=== PATIENT | male | born 1955 | race Caucasian/White ===

== ENCOUNTER 2016-10-31 00:12 | Emergency (ER) | payer OTHER ==
--- NOTE | ~2016-10-31 | CT4 ---
[facility] A Service [facility] RADIOLOGY TEXT RESULTS PATIENT: CARLOS CHANG LOCATION: SED : 53 UNIT #: [id number] AGE: [address]: Garcia Costa MD SEX: M ORDER DR: [id number] [place] [id number] E MR#: [id number] Acc #: [id number] NAME: CARLOS CHANG. : 1955 SEX: M STUDY DATE/TIME: 10/31/2016 0:51 UNIT: SED ROOM: STUDY DESCRIPTION: CT Abd and Pelv Wo Cont Attending Physician: Garcia Costa M.D. Ordering Physician: Garcia Costa M.D. Primary Care Physician: Lázaro Blount M.D. MEDICAL IMAGING REPORT This report is preliminary unless electronic signature is present. EXAM CT abdomen and pelvis without contrast INDICATION Right flank pain with nausea since 5:00 yesterday. Patient had stent removed from right kidney on 09/30/2016. COMPARISON 09/29/2016. TECHNIQUE Axial 3 mm images were obtained through the abdomen and pelvis without IV or oral contrast. This CT examination was performed with one or more of the following radiation dose reduction techniques: automatic exposure control, adjustment of mA and/or kV according to patient size, and iterative reconstruction. FINDINGS The lung bases are clear. The liver, gallbladder, spleen, pancreas and adrenal glands are normal. The left kidney has a nonobstructing 4 mm stone in the lower pole as well as a 1 mm stone. The right kidney has multiple small renal stones in the calyces and there is a proximal ureteral stone causing moderate obstruction. This stone measures about 8 mm in diameter. The aorta is normal in size. The bowel is normal. The bladder and prostate gland are normal. The bones show degenerative changes. IMPRESSION 1. 8 mm proximal right ureteral stone causing moderate right hydronephrosis and there are tiny nonobstructing stones in the right kidney and left kidney. 2. Stable right renal cyst. [facility] A Service of [facility] RADIOLOGY TEXT RESULTS PATIENT: CARLOS CHANG [place] [facility] [place] UNIT #: [id number] AGE: [address]: Garcia Costa MD SEX: M ORDER DR: Dictated by... Erich Nagel M.D. THIS IS AN ELECTRONICALLY VERIFIED REPORT Erich Nagel M.D. at 10/31/2016 1:31 PM MARIA ANTONIA/bravo TD: 10/31/2016 09:01 JOB #: [id number] MEDICAL IMAGING REPORT Page 1 of 1
[~2016-10-31 00:12] MED LIST: CIPRO PO; FLOMAX0.4 M1 PO; HYDROCODON-ACE1 EAC1 PO; NO MEDICATIONS; PERCOCET5/325 PO; PHENERGAN25 M1 PO
[2016-10-31] MEDS ORDERED: CAPOZIDE (00:25)
[2016-10-31] MEDS ORDERED: GLUCOPHAGE850 MG (00:25)
[2016-10-31] MEDS ORDERED: PRILOSEC (00:26)
[2016-10-31] MEDS ORDERED: LISINOPRIL (00:26)
[2016-10-31 01:28] LABS: BASOPHIL# 0.1 X10e3 (0-0.3); BASOPHIL% 0.6 % (0-2.5); EOSINOPHIL# 0.4 X10e3 (0-0.7); HEMATOCRIT 41.3 % (38.0-50.0); HEMOGLOBIN 13.7 gm/dL (13.0-16.0); LYMPHOCYTE# 1.5 X10e3 (1.0-3.5); LYMPHOCYTE% 8.3 % (17.0-45.0); MEAN CELL VOLUME 87.6 FL (83-96); MEAN CORPUSCULAR HEMOGLOBIN 29.2 PG (28-34); MEAN CORPUSCULAR HGB CONC 33.3 g/dL (30-36); MEAN PLATELET VOLUME 9.2 FL (6.5-11.5); MONOCYTE# 1.3 X10e3 (0-1.0); MONOCYTE% 7.2 % (3.0-12.0); NEUTROPHIL# 14.7 X10e3 (1.5-7.1); NEUTROPHIL% 81.9 % (40-75); PLATELET COUNT 246 X10e3 (140-420); RED BLOOD COUNT 4.71 X10e (3.90-5.60); RED CELL DISTRIBUTION WIDTH 14.3 % (11.0-15.5)
[2016-10-31 01:29] LABS: DIFF IND NO
[2016-10-31 01:39] LABS: URINE SOURCE CLEAN CATCH
[2016-10-31 01:41] LABS: URINE APPEARANCE CLEAR; URINE BILIRUBIN NEG (NEG); URINE BLOOD 3+ (NEG); URINE COLOR YELLOW; URINE GLUCOSE NEG (NORM); URINE KETONE 1+ (NEG); URINE LEUKOCYTE ESTERASE NEG (NEG); URINE NITRATE NEG (NEG); URINE PROTEIN TRACE (NEG); URINE SPECIFIC GRAVITY >=1.030 (1.003-1.035); URINE UROBILINOGEN 0.2 MG/DL (NORM)
[2016-10-31 01:42] LABS: MICRO INDICATED? YES
[2016-10-31 01:47] LABS: BUN/CREATININE RATIO 16.66; CALCIUM SERUM 8.7 mg/dL (8.4-10.2); CREATININE SERUM 1.5 mg/dL (0.6-1.4); GLOM FILT RATE Estimated 49.2 mL/min (>60); POTASSIUM 3.2 mmol/L (3.5-5.1)
[2016-10-31 01:48] LABS: URINE BACTERIA NEG (NEG); URINE RBC 100-200 /[HPF] (0-2)
[2016-10-31 01:49] LABS: URINE CRYSTALS CALCIUM OXALATE /[HPF]; URINE MUCUS PRESENT; URINE SQUAMOUS EPITHELIAL CELL OCCAS /[HPF]; URINE TRANSITIONAL EPI CELLS FEW /[HPF]
== END 2016-10-31 02:40 | disposition home or self-care (01) ==
LOC: SED 00:12
PROVIDERS: Emergency Medicine
DX: N13.2 Hydronephrosis with renal and ureteral calculous obstruction (principal)
CPT/HCPCS: 36415; 74176; 80048; 81003; 85025; 96374; 96375; 99284; J1885; J2270; J2405

== ENCOUNTER 2016-12-18 05:26 | Emergency (ER) | payer OTHER ==
[~2016-12-18] VITALS: Ht 167.6 cm; Wt 108.9 kg
--- NOTE | ~2016-12-18 | CT4 ---
[facility] A Service of [facility] & [facility] RADIOLOGY TEXT RESULTS PATIENT: CARLOS CHANG LOCATION: SED : 53 UNIT #: [id number] AGE: [address]: Erich Waite MD SEX: M ORDER DR: [id number] [place] [id number] E MR#: [id number] Acc #: [id number] NAME: CARLOS CHANG. : 1955 SEX: M STUDY DATE/TIME: 12/18/2016 6:22 UNIT: SED ROOM: STUDY DESCRIPTION: CT Abd and Pelv Wo Cont Attending Physician: Erich Waite M.D. Ordering Physician: Brett Storey M.D. Primary Care Physician: Lázaro Blount M.D. MEDICAL IMAGING REPORT This report is preliminary unless electronic signature is present. EXAM CT abdomen and pelvis without contrast 12/18/2016 HISTORY 61-year-old male with right flank pain and right upper quadrant abdominal pain beginning yesterday. History of kidney stones. COMPARISON CT abdomen and pelvis 10/31/2016. TECHNIQUE Helical scan performed through the abdomen and pelvis without oral or IV contrast. Coronal and sagittal reformatted images. This CT examination was performed with one or more of the following radiation dose reduction techniques: automatic exposure control, adjustment of mA and/or kV according to patient size, and iterative reconstruction. FINDINGS Visualized lung bases are unremarkable. The liver, spleen, pancreas, gallbladder, and both adrenal glands are within normal limits. There is again noted a 9-10 mm stone in the proximal right ureter. The stone has only minimally progressed since the prior examination of 10/31/2016, now located at the level of the L4 vertebral body. This produces moderate right-sided hydroureteronephrosis and mild right perinephric inflammatory stranding. There are again noted multiple bilateral nonobstructing intrarenal calculi. No left ureteral stones or hydronephrosis. Abdominal aorta normal in course and caliber. Small bowel is unremarkable without obstruction. Appendix is grossly normal. Uncomplicated sigmoid colonic diverticulosis. No free fluid or free air. Urinary bladder and prostate gland unremarkable. Small fat-containing STS. [facility] A Service of [facility] & [facility] RADIOLOGY TEXT RESULTS PATIENT: CARLOS CHANG LOCATION: SED : 53 UNIT #: [id number] AGE: [address]: Erich Waite MD SEX: M ORDER DR: bilateral inguinal hernias. No free pelvic fluid. No acute bony abnormality. IMPRESSION 1. Again noted is a 9-10 mm stone in the proximal right ureter at the level of the L4 vertebral body. This has only minimally progressed since the prior examination of 10/31/2016 and again produces [id number] right-sided hydroureteronephrosis and mild right perinephric inflammatory stranding. 2. Multiple bilateral nonobstructing intrarenal calculi. 3. Normal appendix. 4. Uncomplicated sigmoid colonic diverticulosis. Dictated by... Jayme Miguel M.D. THIS IS AN ELECTRONICALLY VERIFIED REPORT Jayme Miguel M.D. at 12/18/2016 12:15 PM ROBY/bravo TD: 12/18/2016 08:00 JOB #: [id number] MEDICAL IMAGING REPORT Page 1 of 1
[~2016-12-18 05:26] MED LIST changes: +CAPOZIDE; +GLUCOPHAGE850 MG; +LISINOPRIL; +PRILOSEC
[2016-12-18] MEDS ORDERED: FLOMAX0.4 M1 PO (05:39)
[2016-12-18 06:21] LABS: BASOPHIL% 0.1 % (0-2.5); DIFF IND NO; EOSINOPHIL% 0.3 % (0.0-7.0); HEMATOCRIT 43.1 % (38.0-50.0); HEMOGLOBIN 14.4 gm/dL (13.0-16.0); LYMPHOCYTE# 1.1 X10e3 (1.0-3.5); MEAN CELL VOLUME 86.9 FL (83-96); MEAN CORPUSCULAR HEMOGLOBIN 29.1 PG (28-34); MEAN CORPUSCULAR HGB CONC 33.5 g/dL (30-36); MEAN PLATELET VOLUME 9.3 FL (6.5-11.5); MONOCYTE# 0.7 X10e3 (0-1.0); MONOCYTE% 3.7 % (3.0-12.0); NEUTROPHIL% 89.9 % (40-75); PLATELET COUNT 251 X10e3 (140-420); RED BLOOD COUNT 4.95 X10e (3.90-5.60); RED CELL DISTRIBUTION WIDTH 14.5 % (11.0-15.5); WHITE BLOOD COUNT 18.9 X10e3 (4.0-10.5)
[2016-12-18 06:38] LABS: BILIRUBIN, DIRECT 0.1 mg/dL (0.0-0.2); BILIRUBIN,INDIRECT 0.6 mg/dL (0.0-0.9); BILIRUBIN,TOTAL 0.7 mg/dL (0.2-2.0); CALCIUM SERUM 8.5 mg/dL (8.4-10.2); CREATININE SERUM 1.2 mg/dL (0.6-1.4); POTASSIUM 3.5 mmol/L (3.5-5.1); PROTEIN TOTAL SERUM 7.2 g/dL (6.0-8.3)
[2016-12-18 07:03] LABS: URINE APPEARANCE CLEAR; URINE BILIRUBIN NEG (NEG); URINE COLOR YELLOW; URINE GLUCOSE NEG (NORM); URINE KETONE 1+ (NEG); URINE LEUKOCYTE ESTERASE NEG (NEG); URINE NITRATE NEG (NEG); URINE PROTEIN NEG (NEG); URINE SOURCE CLEAN CATCH; URINE UROBILINOGEN 0.2 MG/DL (NORM)
[2016-12-18 07:04] LABS: MICRO INDICATED? NO; URINE BLOOD NEG (NEG)
== END 2016-12-18 09:13 | disposition hospice, home (50) ==
LOC: SED 05:26
PROVIDERS: Emergency Medicine
DX: N13.2 Hydronephrosis with renal and ureteral calculous obstruction (principal); Z79.899 Other long term (current) drug therapy
CPT/HCPCS: 36415; 74176; 80048; 80076; 81003; 85025; 96361; 96374; 96375; 99285; J1170; J1885; J2405